=== PATIENT | male | born 1960 | race Hispanic/Latino ===

== ENCOUNTER 2017-11-29 06:47 | Day surgery (SDC) | payer MEDICARE ==
[2017-11-29 07:50] LABS: Eosinophils # (Auto) 0.3 K/mm3 (0.0-0.4); Eosinophils % (Auto) 4.4 % (0.0-4.3); Monocytes # (Auto) 0.5 K/mm3 (0.0-0.8); Monocytes % (Auto) 8.8 % (0.0-7.3)
[2017-11-29 07:51] LABS: Basophils % (Auto) 0.6 % (0.0-1.8); Hematocrit 38.5 % (35.5-45.6); Hemoglobin 12.6 gm/dl (11.8-15.2); Lymphocytes % (Auto) 34.9 % (13.4-35.0); Mean Corpuscular HGB Conc 33 % (32-34); Mean Corpuscular Hemoglobin 30 pg (28-32); Mean Corpuscular Volume 91 fl (84-94); Platelet Count 65 K/mm3 (140-440); Red Blood Count 4.24 M/mm3 (3.65-5.03); Red Cell Distribution Width 15.2 % (13.2-15.2)
[2017-11-29 07:53] LABS: INR 0.96 (0.87-1.13); Partial Thromboplastin Time 25.2 Sec. (24.2-36.6)
[2017-11-29 07:54] LABS: BUN/Creatinine Ratio 17; Blood Urea Nitrogen 10 mg/dL (9-20); Calcium 8.6 mg/dL (8.4-10.2); Hemolysis Index 6
[2017-11-29] MEDS: NACL 0.9% 1000 ML 1,000 ML IV SCH ×3 (08:11→09:35)
[2017-11-29] MEDS ORDERED: ANCEF/STERILE WATER 2 GM/20 ML 2 GM/20 ML SYRINGE IV ONE (08:12)
[2017-11-29] MEDS ORDERED: NITROGLYCERIN SYRINGE 3 ML ONE (09:07)
[2017-11-29] MEDS ORDERED: CALAN ONE (09:07)
[2017-11-29] MEDS ORDERED: HEPARIN/NS 5000 UNIT/500ML(CATH LAB) 500 ML IR ONE (09:27)
[2017-11-29] MEDS: HEPARIN/NS 5000 UNIT/500ML(CATH LAB) 1,000 ML IR ONE ×2 (09:33→09:36)
[2017-11-29] MEDS: VERSED ONE ×7 (09:34→11:05)
[2017-11-29] MEDS: XYLOCAINE 2% INFILTRATI ONE ×3 (09:35→09:47)
[2017-11-29] MEDS: SUBLIMAZE ONE ×10 (09:35→11:31)
[2017-11-29] MEDS: ANCEF/STERILE WATER 2 GM/20 ML 2 GM/20 ML SYRINGE IV NR ×2 (09:35→09:36)
[2017-11-29] MEDS: HEPARIN 10,000 UNITS/10 ML ONE ×5 (09:54→10:53)
[2017-11-29] MEDS: PROTAMINE SULFATE ONE ×2 (12:02→12:13)
--- NOTE | 2017-11-29 12:42 | Post Operative Note ---
Pre-op diagnosis: peripheral vascular disease with claudication Post-op diagnosis: same Findings: A 90% stenosis of the proximal right common femoral and distal external iliac artery, 80% stenosis of the mid external iliac artery, 80% stenosis of the distal common iliac artery with in stent restenosis, 60% stenosis of the proximal common iliac artery. Successful resolution of stenotic lesions using angioplasty, with drug coated balloon angioplasty, Procedure: Percutaneous balloon angioplasty of the right common iliac artery with treatment with a DCB Percutaneous balloon angioplasty of the right external iliac artery proximal common femoral artery with treatment using a DCB Intravascular ultrasound of the right common iliac artery, right external iliac artery, right common femoral artery, and proximal superficial femoral artery bypass graft Moderate sedation start time 0940 and time 12:30 Duplex guided cannulation right brachial artery Anesthesia: other (moderate sedation) Surgeon: KEVIN LINTON Estimated blood loss: minimal Pathology: none Condition: stable Disposition: same day
--- NOTE | 2017-11-29 12:45 | Short Stay Summary ---
Short Stay Documentation Date of service: 11/29/17 Narrative H&P: To the [employer] [employer] for outpatient iliac artery angioplasty - History H&P: obtained from office - Allergies and Medications Current Medications: Allergies codeine Adverse Reaction (Verified 01/08/14 07:16) Nausea Home Medications Medication Instructions Recorded Confirmed Last Taken Type Omeprazole 40 mg PO DAILY 07/02/14 11/29/17 11/29/17 05:30 History 40mg ALPRAZolam [Xanax TAB] 1 mg PO DAILY PRN 11/20/15 11/29/17 11/28/17 History 05mg Folic Acid [Folvite] 1 mg PO QDAY 11/20/15 11/29/17 11/29/17 History 1mg Gabapentin [Neurontin] 100 mg PO TID 11/20/15 11/29/17 11/29/17 History 100mg Insulin Detemir [Levemir VIAL] 10 unit SQ QHS 11/20/15 11/29/17 11/27/17 History 10units Nicotine [Habitrol] 7 mg TD DAILY 11/20/15 11/20/15 Unknown History metFORMIN [Glucophage] 500 mg PO BID 11/20/15 11/29/17 11/28/17 History 500mg Carvedilol 6.25 mg PO BID 11/30/15 11/29/17 11/29/17 05:30 History 6.25mg Clopidogrel [Plavix] 75 mg PO QDAY #30 tablet 12/01/15 11/29/17 11/29/17 05:30 Rx 75mg Furosemide [Lasix TAB] 40 mg PO DAILY 11/29/17 11/29/17 11/28/17 History 40mg Losartan Potassium [Cozaar] 50 mg PO DAILY 11/29/17 11/29/17 11/29/17 05:30 History 50mg Potassium Chloride [K-Dur] 20 meq PO QDAY 11/29/17 11/29/17 11/28/17 History 20meq Pravastatin [Pravachol] 40 mg PO QHS 11/29/17 11/29/17 11/28/17 History 40mg metFORMIN [Glucophage] 500 mg PO BID 11/29/17 11/29/17 11/28/17 History 500mg oxyCODONE [Roxicodone TAB] 15 mg PO Q6HR PRN 11/29/17 11/29/17 11/29/17 05:30 History 15mg Active Medications Cefazolin Sodium (Ancef/Sterile Water 2 Gm/20 Ml) 2 gm in 20 mls @ 80 mls/hr IV PREOP NR; Protocol Stop: 11/29/17 23:59 Last Admin: 11/29/17 09:35 Dose: 20 mls Sodium Chloride (Nacl 0.9% 1000 Ml) 1,000 mls @ 42 mls/hr IV DIRECT QUENTIN Last Admin: 11/29/17 09:33 Dose: 42 mls/hr - Brief post op/procedure progress note Date of procedure: 11/29/17 Pre-op diagnosis: PVD with claudication Post-op diagnosis: same Procedure: Percutaneous balloon angioplasty right common iliac artery, right external iliac artery, right common femoral artery with treatment of all the above using drug coated balloon, intravascular ultrasound of the right common iliac artery, right external iliac artery, right common femoral artery, and right superficial femoral artery bypass graft, moderate sedation total time 2 hours 50 minutes, duplex guided cannulation right brachial artery artery Anesthesia: other (moderate sedation total time 2 hours 50 minutes-) Findings: Multiple significant separate stenotic lesions throughout the entire right common iliac artery, within the previously placed stents, in the proximal and distal external iliac artery and in the proximal common femoral artery the right leg excessively treated with balloon angioplasty and drug eluding balloon. Surgeon: KEVIN LINTON Estimated blood loss: minimal Pathology: none Condition: stable - Hospital course Hospital course: Benign - Disposition Condition at discharge: Stable Disposition: [id number] TO HOME OR SELFCARE - Discharge Diagnoses (1) Atherosclerosis of [place] arteries of the extremities with intermittent claudication Status: Chronic Short Stay Discharge Plan Activity: advance as tolerated Weight Bearing Status: Full Weight Bearing Diet: regular Wound: keep clean and dry Special Instructions: no heavy lifting Follow up with: JESSEE LANG MD [Primary Care Provider] - 7 Days KEVIN LINTON MD [Staff Physician] - 7 Days Prescriptions: metFORMIN [Glucophage] 500 mg PO BID #60 tablet
[2017-11-29 15:20] VITALS: BP 112/52
--- NOTE | 2017-11-29 19:49 | Operative Report ---
Operative Report Operative Report: Date of procedure: 11/29/2017 Pre-operative diagnosis: Peripheral vascular disease with claudication, status post multiple iliac stents and right to left femorofemoral bypass graft Post-operative diagnosis: Same Procedure name(s): Percutaneous balloon angioplasty with drug-eluting balloon of the right common iliac artery, right external iliac artery, and right common femoral artery. #2 intravascular ultrasound of the right common iliac artery # 3 intravascular ultrasound of the right external iliac artery #4 intravascular ultrasound of the right common femoral artery #5 intravascular ultrasound of the right superficial femoral artery bypass graft #6 ultrasound-guided cannulation of the right brachial artery Surgeon: Ag Martinez MD Crayon Sawyer: None Anesthesia: Moderate sedation total sedation time 2 hours 50 minutes EBL: Less than 25 mL Specimen(s): None Complications: None Findings: (Separate high-grade stenotic lesions. Delineated by the intravascular ultrasound involving the common iliac artery, external iliac artery, proximal common femoral artery in the right lower extremity all proximal to the femorofemoral bypass graft. Lesions successfully treated with aggressive balloon angioplasty and drug-eluting balloon with significantly improved blood flow to both lower extremities. Procedure: Patient in the supine position the right arm was extended and prepped and draped using standard sterile technique. The ultrasound probe was used to identify the patent brachial artery and through anesthetized skin the vessel was cannulated using real-time imaging and a micropuncture catheter. A 5 Arabic introducer was placed and using a scissor and long vertebral catheter both were successfully advanced through the aortic arch into the abdominal aorta and down into the right iliac artery. Contrast was then injected which showed several areas of suspicious high-grade stenosis consistent with the previous angiogram done at another institution several weeks prior. No lesions appeared to exceed 50%. The patient was heparinized and a 6 Arabic [place] destination sheath was advanced into the abdominal aorta. The advantage wire was exchanged for an 014 wire and the intravascular ultrasound was then advanced into the fissure femoral artery bypass graft. The vessel from that level all the way to the abdominal aorta was then interrogated in multiple high- grade stenotic lesions were identified. Several of these were identified to be significantly worse appearing then the angiogram had suggested. We obtained appropriate sizes of the vessel determined that a 6 mm balloons be appropriate. Then advanced a 6 mm long balloon into the common femoral artery at the femorofemoral anastomosis and proceeded to balloon the more distal lesions. I then pulled the balloon back and proceeded to sequentially balloon multiple lesions all the way to the aorta. I then obtained a 6 x 1 50 drug-eluting balloon and treated the vessel again delivering medication into the wall the vessel. A second drug-eluting balloon 6 x 80 was then used for the top portion to prevent restenosis. Repeat contrast injection BELEN showed some residual stenotic lesions. Then balloon the lower part of the external iliac and proximal common femoral with a 7 mm balloon be contrast injection showed dramatically improved blood flow into the right leg and through the femorofemoral bypass graft. The procedure was then terminated by removing all guidewires and catheters and the distracted with prolonged counter pressure held until hemostasis was obtained. Did give protamine to facilitate hemostasis. Patient tolerated the procedure well and was returned to the recovery area in stable condition.
== END 2017-11-29 16:04 | disposition home or self-care (01) ==
LOC: CATHLABREC 06:47 → EDSTATUS 08:30 → CATHLABREC 16:04
PROVIDERS: ATTEND Surgery Vascular Surgery
DX: I70.213 Atherosclerosis of native arteries of extremities with intermittent claudication, bilateral legs (principal); I65.23 Occlusion and stenosis of bilateral carotid arteries; I25.2 Old myocardial infarction; I25.10 Atherosclerotic heart disease of native coronary artery without angina pectoris; I48.91 Unspecified atrial fibrillation; I10 Essential (primary) hypertension; M19.90 Unspecified osteoarthritis, unspecified site; J45.909 Unspecified asthma, uncomplicated; E11.9 Type 2 diabetes mellitus without complications; E78.00 Pure hypercholesterolemia, unspecified; F17.200 Nicotine dependence, unspecified, uncomplicated; Z95.1 Presence of aortocoronary bypass graft; Z79.899 Other long term (current) drug therapy; Z88.5 Allergy status to narcotic agent; Z79.4 Long term (current) use of insulin; Z98.890 Other specified postprocedural states
CPT/HCPCS: 36415; 37220; 37222; 37252; 37253; 76937; 80048; 82962; 85025; 85610; 85730; 99156; 99157; C1725; C1753; C1769; C1887; C1894; C2623; J0690; J1644; J2250; J2720; J3010; J7030; Q9967

== ENCOUNTER 2018-10-22 10:26 | Outpatient (CLI) | payer MEDICARE ==
[2018-10-22 11:09] LABS: Blood Urea Nitrogen 9 mg/dL (9-20)
--- NOTE | 2018-10-22 15:42 | Cat Scan Report ---
PROCEDURE: CT ANGIO NECK TECHNIQUE: HISTORY: OCCLUSION AND STENOSIS OF BILATERAL CAROTID ARTERIES COMPARISONS: FINDINGS: There is minimal calcified plaque at the origins of both vertebral arteries. No focal stenosis identi fied. Vertebral arteries bilaterally otherwise appear widely patent. Moderate peripheral emphysematous changes seen in the upper lung galvez bilaterally. There is minimal calcified plaquing at the origin of the right and left vertebral arteries. There is also small amoun t of calcified plaquing without stenosis in the proximal third of the right vertebral artery. The zaina tebral arteries otherwise appear widely patent. There is a small amount of calcified plaquing in the proximal right common carotid artery. There is i rregular mild dilatation of the region of the carotid bulb. There may have been previous endarterecto my. The ligament is mildly irregular without significant stenosis. At the junction of the endarterect jozef site and the internal carotid artery and there appears to be narrowing secondary to noncalcified plaquing. The vessel is narrowed approximately 40-50%. The parker of the distal internal carotid arter y are heavily calcified. The vessel is narrowed approximately 40-50% secondary to calcified plaquing. On the left side there is irregular dilatation in the region of the carotid bulb. This may be related to previous endarterectomy. There is minimal calcified plaquing. There is a small amount of calcifie d plaquing in the distal internal carotid artery narrowing the vessel less than 50%. There is no occl usion of the right or left carotid arteries. IMPRESSION: Minimal atherosclerotic changes seen in the vertebral arteries without significant stenosis. There is irregular mild dilatation in the region of the carotid bulbs bilaterally, this may be due to previous endarterectomy. Correlation with prior surgical history is recommended. Approximately 50% stenosis at the origin of the suspected endarterectomy site on the right and business intern al carotid artery narrowing the vessel 40-50%. Calcified plaquing seen distal right internal carotid artery as described narrowing the vessel approx imately 50%. Milder calcified plaquing seen in the left internal carotid artery narrowing the vessel less than 50%. There is no evidence for occlusion of the right or left carotid systems or vertebral arteries. This document is electronically signed by Leon Cortés MD., October 22 2018 03:40:11 PM ET
== END 2018-10-22 10:27 | disposition home or self-care (01) ==
LOC: CT 10:26
PROVIDERS: ATTEND Surgery Vascular Surgery
DX: I70.413 Atherosclerosis of autologous vein bypass graft(s) of the extremities with intermittent claudication, bilateral legs (principal); I70.0 Atherosclerosis of aorta; E08.36 Diabetes mellitus due to underlying condition with diabetic cataract; E08.59 Diabetes mellitus due to underlying condition with other circulatory complications; I65.23 Occlusion and stenosis of bilateral carotid arteries; I25.10 Atherosclerotic heart disease of native coronary artery without angina pectoris; F17.200 Nicotine dependence, unspecified, uncomplicated
CPT/HCPCS: 36415; 70498; 82565; 84520; Q9967